=== PATIENT | female | born 1975 | race Two or more races ===

== ENCOUNTER → 2022-09-01 | Outpatient (CLI) | payer MEDICAID, SELFPAY ==
--- NOTE | 2022-08-31 | TISS_PTH ---
PATIENT: SHERRI VARGHESE LOC: [facility] U#:[id number] AGE/SX: 47/F ROOM: RE09/01/[address]: Dr. Rina Aguilar MD : 1975 BED: DIS: 09/01/2022 SPEC #: [id number] RECD: 09/01/22 12:22 STATUS: MAINOR CHANTE #: [id number] TERENCE: 08/31/22 00:[address]: Rina Aguilar DEPT: SURGICAL PATHOLOGY RECD BY: Amy Marin ENTERED: 09/01/22 13:54 SP TYPE: Tissue Bx BOBBY DR: Dr. Colt Nowak MD Tissues: Thyroid gland, NOS Procedures: Surgery Specimen Level IV HEADER OPERATION: Fine needle aspiration left thyroid PRE-OP DIAGNOSIS: Abnormal ultrasound TISSUE SUBMITTED: Left thyroid core biopsy MICROSCOPIC DIAGNOSIS Left thyroid, core biopsy: Consistent with benign colloid nodule. See comment. GENI:kasi 09/02/2022 COMMENT Please correlate with cytology [id number]. Correlation with clinical, radiologic findings and appropriate follow up are necessary. MICROSCOPIC DESCRIPTION Slides are reviewed. GROSS DESCRIPTION Received in fixative is one container labeled with the patient's name and designated left thyroid core biopsy. The specimen consists of multiple irregular fragments of keith soft tissue that in aggregate measure 1 x <0.1 x <0.1 cm. The entire specimen is submitted in one cassette. / SJ:rg 09/01/2022 TC:5 CPT: 47166
--- NOTE | 2022-08-31 | FLU_PTH ---
PATIENT: SHERRI VARGHESE LOC: [facility] U#:[id number] AGE/SX: 47/F ROOM: RE09/01/[address]: Dr. Rina Aguilar MD : 1975 BED: DIS: 09/01/2022 SPEC #: [id number] RECD: 09/01/22 12:22 STATUS: MAINOR RECatrina #: [id number] TERENCE: 08/31/22 00:[address]: Rina Aguilar DEPT: CYTOLOGY RECD BY: Amy Marin ENTERED: 09/01/22 13:54 SP TYPE: Fluid OTHR DR: Dr. Colt Nowak MD Tissues: A - Thyroid gland, NOS B - Thyroid gland, NOS Procedures: Special Stain Group II Surgery Specimen Level IV Cytospin Fluid Cytology Other HEADER OPERATION: Fine needle aspiration left thyroid PRE-OP DIAGNOSIS: Abnormal ultrasound TISSUE SUBMITTED: A - FNA left thyroid nodule fluid, B - FNA left thyroid nodule x4 slides DIAGNOSIS CYTOLOGY A. Left thyroid nodule fluid, fine needle aspiration (cytospin and cell block): Negative for malignant cells. See comment. B. Left thyroid nodule, fine needle aspiration (smears): Consistent with benign follicular/colloid nodule ([place] Category II). Adequate for evaluation. See comment. SJ:kasi 09/02/2022 COMMENT A. A few clusters of benign follicular cells are noted. B. Smears also show drying artifact. Correlation with clinical, radiologic findings and appropriate follow up are necessary. Please correlate with corresponding surgical specimen [id number]. CYTOLOGY STUDY Slides are reviewed. CYTOLOGY GROSS A - Received is 30 ml of light brown cloudy fluid labeled with the patient's name and and designated per the requisition as left thyroid. Submitted for cytology preparation including cell block. B - Received are four smears labeled with the patient's name and designated per the requisition as left thyroid. Submitted for staining. / kasi 09/01/2022 TC:3 CPT: 09030 x2, 18605
== END | disposition home or self-care (01) ==
LOC: LABSPEC 13:11
PROVIDERS: PCP Family Medicine; Visit Provider Surgery
DX: E04.1 Nontoxic single thyroid nodule (principal)
CPT/HCPCS: 88108; 88161; 88305; 88313